=== PATIENT | female | born 1980 | race Caucasian/White ===

== ENCOUNTER → 2017-02-22 | Outpatient (CLI) | payer OTHER, MEDICAID ==
--- NOTE | 2017-02-23 10:23 | MRI ---
MRI BRAIN WITHOUT AND WITH CONTRAST CLINICAL HISTORY: 36-year-old female with chronic migraines. COMPARISON: None. TECHNIQUE: Multiplanar, multisequence MR images of the brain were obtained prior to and following th e uneventful intravenous administration of 12 mL Omniscan. FINDINGS: There is no evidence of diffusion restriction. The craniocervical junction is normal. Pituitary and o ptic nerve complex are normal. There are few scattered, nonspecific punctate T2 FLAIR signal hyperint ensities are present within the periventricular and supraventricular white matter that are nonspecifi c in appearance but most likely to represent microvascular white matter ischemic changes. Normal sign al characteristics and morphology are demonstrated within the cerebral cortex, corpus callosum, deep davis nuclei, brainstem and cerebellum. The major vascular channels opacify normally and the major vas cular flow voids, to include the dural venous sinuses, are intact. The ventricular system is normal i n size and morphology. The basilar cisterns are normal. There is no evidence of abnormal intracranial enhancement. The orbits and globes are within normal limits. Paranasal sinuses, mastoid air cells and tympanic cav ities are clear. IMPRESSION: 1. There are few scattered punctate T2 FLAIR hyperintense signal abnormalities within the periventric ular/supraventricular white matter, which can be seen with migraines. 2. No acute ischemic or hemorrhagic insult. 3. No abnormal intracranial enhancement. Reported By:
== END ==
LOC: RAD 13:46
PROVIDERS: ATTEND Psychiatry & Neurology Neurology
DX: R55 Syncope and collapse (principal)
CPT/HCPCS: 70553; 95819